=== PATIENT | male | born 1995 | race Asian ===

== ENCOUNTER 2018-11-23 07:06 | Emergency (ER) | payer MEDICAID ==
[~2018-11-23] VITALS: Ht 177.8 cm; Wt 80.6 kg
[2018-11-23] MEDS ORDERED: [UNRECOGNIZED DRUG - OTHER] (07:52)
--- NOTE | 2018-11-23 08:01 | NUR ---
PT REPORTS THAT HE RELAPSE ON METH AND ETOH LAST NIGHT. PT HAS NO PLACE TO GO. PT GIVEN MULTIPLE RESOURCES REGARDING INPATIENT AND OUTPT TREATMENT OPTIONS. PT STATES, "I'M GOING TO CALL THEM TODAY AND GET SOME HELP".
[2018-11-23 08:04] VITALS: BP 156/98
== END 2018-11-23 08:28 | disposition home or self-care (01) ==
LOC: ED 08:25
DX: F10.220 Alcohol dependence with intoxication, uncomplicated (principal); F20.9 Schizophrenia, unspecified; F31.9 Bipolar disorder, unspecified
CPT/HCPCS: 82962; 99282